=== PATIENT | female | born 1980 | race Two or more races ===

== ENCOUNTER 2024-09-28 08:25 | Day surgery (SDC) | payer OTHER ==
[2024-09-24 13:02] LABS: BASO % 0.5 % (0.1-1.2); EOS # 0.07 (0.04-0.54); EOS % 1.7 % (0.7-7.0); LYMPH # 1.46 (1.18-3.74); LYMPH % 34.7 % (19.3-53.1); MEAN PLATELET VOLUME 9.40 fl (9.4-12.4); MONO # 0.17 (0.24-0.82); MONO % 4.0 % (4.7-12.5); NEUT # 2.48 (1.56-6.13); NEUT % 58.9 % (34.0-71.1); RED CELL DISTRIBUTION WIDTH 18.9 % (11.6-14.4)
[2024-09-24 13:34] LABS: INR 0.96
[2024-09-24 13:55] LABS: ALT/SGPT 26.0 U/L (12-78); AST/SGOT 14.0 U/L (15-37); BILIRUBIN TOTAL 0.56 mg/dL (0.3-1.2); BUN CREA RATIO 21.0 (7.0-25.0); CREATININE SERUM 0.58 mg/dL (0.55-1.02); GFR 111.92; GLOBULINA 3.3 G/DL (2.4-3.5); GLUCOSE FASTING 76.0 mg/dL (65-100); OSMOLALITY SERUM 285.0 MOSM/KG (275-295)
[~2024-09-28 08:25] MED LIST: INTEGRA F CAPS1 EACH PO; VITAMIN D
[2024-09-28] MEDS ORDERED: CEFAZOLIN SODIUM 1,000 MG VIAL IV ONE (10:45)
== END 2024-09-28 16:05 | disposition home or self-care (01) ==
LOC: CIR.AMB 08:25
PROVIDERS: ATTEND Obstetrics & Gynecology
DX: N93.8 Other specified abnormal uterine and vaginal bleeding (principal)

== ENCOUNTER 2024-11-05 09:00 | Inpatient (IN) | payer OTHER ==
[~2024-11-05] VITALS: Ht 157.5 cm; Wt 60.3 kg
[2024-11-05 10:55] VITALS: BP 131/80
[2024-11-05 10:57] VITALS: BP 130/90
[2024-11-05 11:15] LABS: BASO % 0.4 % (0.1-1.2); EOS # 0.09 (0.04-0.54); EOS % 1.9 % (0.7-7.0); LYMPH # 1.49 (1.18-3.74); LYMPH % 30.9 % (19.3-53.1); MEAN PLATELET VOLUME 9.90 fl (9.4-12.4); MONO # 0.29 (0.24-0.82); MONO % 6.0 % (4.7-12.5); NEUT # 2.92 (1.56-6.13); NEUT % 60.6 % (34.0-71.1); RED CELL DISTRIBUTION WIDTH 14.9 % (11.6-14.4)
[2024-11-05 11:21] LABS: URINE APPEARANCE Clear; URINE BILIRRUBIN Negative (NEGATIVE); URINE BLOOD Negative; URINE COLOR Yellow; URINE GLUCOSE Negative (NEGATIVE); URINE KETONE Trace (NEGATIVE); URINE LEUKOCYTE Negative; URINE NITRATE Negative; URINE PROTEIN Negative (NEGATIVE); URINE UROBILINOGEN 0.2 E.U./dl
[2024-11-05 11:22] LABS: URINE BACTERIA 398.3 uL (0.0-1933); URINE EPITHELIAL CELLS 45.6 uL (0.0-38.8); URINE RBC 6.0 uL (0.0-20.8); URINE WBC 10.1 uL (0.0-23.2)
[2024-11-05 11:29] LABS: ALT/SGPT 24.0 U/L (12-78); AST/SGOT 14.0 U/L (15-37); BILIRUBIN TOTAL 0.56 mg/dL (0.3-1.2); BUN CREA RATIO 31.0 (7.0-25.0); CREATININE SERUM 0.61 mg/dL (0.55-1.02); GFR 105.59; GLOBULINA 3.6 G/DL (2.4-3.5); GLUCOSE FASTING 91.0 mg/dL (65-100); OSMOLALITY SERUM 289.0 MOSM/KG (275-295)
[2024-11-05 11:31] LABS: INR 0.99
[2024-11-05 11:42] LABS: URINE CAST 0.58 uL (0.0-1.40)
[2024-11-09] MEDS ORDERED: POVIDONE-IODINE 118 ML BOTT TOP ONE (13:45)
[2024-11-09] MEDS ORDERED: CEFAZOLIN SODIUM 1,000 MG VIAL IV ONE (13:45)
[2024-11-09] MEDS ORDERED: MORPHINE SULFATE 4 MG/ML VIAL IV ONE ×2 (15:35→17:15)
[2024-11-09] MEDS ORDERED: MORPHINE SULFATE 4 MG/ML VIAL IV PRN (17:15)
[2024-11-09] MEDS ORDERED: CEFAZOLIN SODIUM 1,000 MG VIAL IV SCH (18:00)
[2024-11-09 19:35] VITALS: BP 131/80
[2024-11-09] MEDS ORDERED: PROMETHAZINE HCL 50 MG/ML AMPUL IM NR (20:00)
[2024-11-09 21:13] LABS: BASO % 0.1 % (0.1-1.2); EOS # 0.00 (0.04-0.54); EOS % 0.0 % (0.7-7.0); LYMPH # 0.41 (1.18-3.74); LYMPH % 3.5 % (19.3-53.1); MEAN PLATELET VOLUME 9.80 fl (9.4-12.4); MONO # 0.41 (0.24-0.82); MONO % 3.5 % (4.7-12.5); NEUT # 10.82 (1.56-6.13); NEUT % 92.6 % (34.0-71.1); RED CELL DISTRIBUTION WIDTH 14.0 % (11.6-14.4)
[2024-11-10 00:44] VITALS: BP 131/83
[2024-11-10 08:35] VITALS: BP 116/77
[2024-11-10 16:41] VITALS: BP 130/80
[2024-11-11] VITALS: BP 122/68
[2024-11-11 08:56] VITALS: BP 145/89
== END 2024-11-11 15:31 | disposition home or self-care (01) | DRG 743 ==
LOC: OB/GYN 11-09 08:00 → O/R 11-09 09:00 → OB/GYN 11-09 15:21
PROVIDERS: ADMIT Obstetrics & Gynecology; ATTEND Obstetrics & Gynecology
PROC: 0UT10ZZ Resection of Left Ovary, Open Approach (ICD-10-PCS; 2024-11-09)
PROC: 0UT90ZZ Resection of Uterus, Open Approach (ICD-10-PCS; principal; 2024-11-09 08:00)
DX: D25.1 Intramural leiomyoma of uterus (principal); D25.0 Submucous leiomyoma of uterus; Z90.710 Acquired absence of both cervix and uterus; N93.9 Abnormal uterine and vaginal bleeding, unspecified; N80.03 Adenomyosis of the uterus; D27.1 Benign neoplasm of left ovary; N73.6 Female pelvic peritoneal adhesions (postinfective)